=== PATIENT | female | born 1975 | race Caucasian/White ===

== ENCOUNTER 2017-03-05 08:08 | Emergency (ER) | payer BC, OTHER ==
[2017-03-05 08:33] LABS: Urine Bilirubin Negative (NEGATIVE); Urine Ketone Negative (NEGATIVE); Urine Nitrite Negative (NEGATIVE); Urine Protein Negative (NEGATIVE); Urine Specific Gravity 1.015 SP.GR. (1.005-1.010); Urine Urobilinogen Normal (NORMAL); Urine pH 6.5 pH (5.0-7.0)
--- NOTE | 2017-03-05 08:40 | ERNOTE ---
ER Female HPI Stated Complaint: UTI Presenting Symptoms: dysuria Time Seen by Provider: 03/05/17 08:19 Source: patient Exam Limitations: no limitations Allergies/Adverse Reactions: Allergies ampicillin [Ampicillin] Allergy (Mild, Verified 03/05/17 08:21) RASH clindamycin Allergy (Mild, Verified 03/05/17 08:21) RASH Home Medications: HOME MEDICATIONS HYDROcodone/ACETAMINOPHEN [Vega 5-325] 1 each PO Q4H #20 tablet 03/05/17 [Last Taken Unknown] Tamsulosin HCl [Flomax] 0.4 mg PO DAILY@1800 #7 capsule 03/05/17 [Last Taken Unknown] - History of Present Illness Narrative: Patient presents with a pressure sensation in her bladder just prior to and after voiding as well as some low-grade pain in both flanks. Onset of symptoms was yesterday. Timing: Present: intermittent Quality: Present: mild Onset Location: Present: suprapubic Radiation: Present: right flank, left flank Activities at Onset: Present: none Prior Abdominal Problems: Present: none Sexual [place] History: Present: single partner Associated Symptoms: Present: denies symptoms Review of Systems - Review of Systems Constitutional: Present: See HPI EYE: Present: no symptoms reported ENT: Present: no symptoms reported Respiratory: Present: no symptoms reported Cardiology: Present: no symptoms reported Gastrointestinal/Abdominal: Present: no symptoms reported Genitourinary: Present: See HPI, dysuria Musculoskeletal: Present: no symptoms reported Skin: Present: no symptoms reported Neurological: Present: no symptoms reported Endocrine: Present: no symptoms reported Hematologic/Lymphatic: Present: no symptoms reported Psych: Present: no symptoms reported - Patient's Past Medical History Patient History - Medical: No pertinent hx Patient History - Cardiac/Respiratory: No pertinent hx Patient History - Cancer: No Hx of Cancer Patient History - Surgical Procedures: Cholecystectomy Patient History - Other: None - Social History Living Situations: home Psych History: No pertinent hx Alcohol Use: none Drug Use: none Physical Exam - Physical Exam General Appearance: Present: wd/wn, alert, mild distress Head Exam: Present: normal inspection Eye Exam: Normal inspection: bilateral, PERRL: bilateral Ears, Nose, Throat: Present: normal ENT inspection, H, normal pharynx Neck: Present: normal inspection, nontender Respiratory: Present: no respiratory distress, normal breath sounds, no accessory muscle use, chest nontender, lungs clear Cardiovascular/Chest: Present: regular rate, rhythm, no murmur, normal peripheral pulses Gastrointestinal/Abdominal: Present: normal bowel sounds, nondistended, soft, no organomegaly, other - mild suprapubic tenderness Rectal Exam: Present: deferred Back Exam: Present: normal inspection, normal range of motion, CVA tenderness (R ), CVA tenderness (L) - both CVAs exhibit mild discomfort Extremity Exam: Present: normal inspection, non-tender, no edema, normal range of motion Neurological Exam: Present: alert, oriented, normal mood/affect Skin Exam: Present: normal color, warm/dry Lymphatic Exam: Present: no adenopathy ED Progress - Results and Orders Patient's Lab Results:: I have reviewed the patient's lab results. - Vital Signs Patient's Vital Signs:: I have reviewed the patient's vital signs. Vital Signs: Vital Signs 03/05/17 08:16 Temperature 36.4 C L Pulse Rate 79 Respiratory 12 Rate Blood Pressure 137/85 O2 Sat by Pulse 98 Oximetry - CT/Ultrasound CT/Ultrasound Narrative: CT of the abdomen and pelvis was reviewed by me - Progress/Reassessment Chief Complaint: Genitourinary Problem Plan - Plan Plan: Patient's pain appears to be coming from primarily a 2 mm renal stone that is traversed the majority of the distance of the ureter and now states just above the UVJ. Patient was advised that the majority of the time, up to 90+ percent of the time a 2 mm stone will pass, however occasionally they get hung up right here at this point and that she may need to see a urologist. Patient will see Dr. Jorgensen if the pain persists and she may need an ultrasound to assess the hydronephrosis and whether we have urine jets on the right side. If she does not pass the stone she was advised that a urology consult would be in order and she understood that and will call her family physician in the morning. Departure Clinical Impression: Kidney stone on right side, Renal colic on right side - Departure Disposition: Home self-care Condition: Good Instructions: Renal Colic, [id number], Kidney Stones, [id number] Referrals: Real Oliver MD [Primary Care Provider] - Otilio Ojeda MD [Associate] - Prescriptions: HYDROcodone/ACETAMINOPHEN [Vega 5-325] 1 each PO Q4H #20 tablet Tamsulosin HCl [Flomax] 0.4 mg PO DAILY@1800 #7 capsule
[2017-03-05 08:42] LABS: Urine Appearance Clear; Urine Blood 10 /ul (NEGATIVE); Urine Color Yellow
[2017-03-05 08:43] LABS: Urine Bacteria None Seen; Urine RBC 0-5 /hpf (0-5); Urine WBC None Seen /hpf (0-5)
[2017-03-05 09:03] LABS: Hematocrit 42.4 % (37.0-47.0); Hemoglobin 14.8 gm/dL (12.5-16.0); Mean Cell Volume 86.2 fl (78-100); Mean Corpuscular Hemoglobin 30.1 pg (27-31); Mean Corpuscular Hgb Conc 34.9 g/dl (32-36); Mean Platelet Volume 9.3 fl (6.0-9.5); Neutrophil # 7.9 K/mm3 (1.3-6.0); Neutrophil % 69.2 % (42-75.0); Platelet Count 366 K/mm3 (150-450); Red Blood Count 4.92 M/mm3 (4.2-5.4); Red Cell Distribution Width 11.9 % (11.5-14.0); White Blood Count 11.4 K/mm3 (4.0-10.5)
[2017-03-05 09:15] LABS: Albumin * 3.6 gm/dl (3.4-5.0); Anion Gap 13.5 mmol/L (6.8-13.8); BUN/Creatinine Ratio 14.5 (9.0-21.6); Bilirubin, Total 0.5 mg/dL (0.0-1.1); Ca. Corrected For Albumin 8.9 mg/dL (8.4-10.2); Calcium * 8.9 mg/dL (7.9-10.9); Carbon Dioxide 30.2 mmol/L (24-32.6); Magnesium 1.7 mg/dL (1.2-2.8); Potassium 3.7 mmol/L (3.4-4.6); Total Protein 7.8 gm/dL (6.2-8.2)
[2017-03-05 09:25] VITALS: BP 136/87
== END 2017-03-05 09:53 | disposition home or self-care (01) ==
LOC: ER 08:08
DX: N20.0 Calculus of kidney (principal); N23 Unspecified renal colic